=== PATIENT | male | born 1975 | race Caucasian/White ===

== ENCOUNTER → 2018-02-13 16:37 | Outpatient (CLI) | payer SELFPAY ==
[2018-02-13 18:52] LABS: BASOPHILS 0.2 % (0-2); HEMATOCRIT 31.9 % (42.0-54.0); LYMPHOCYTES 25.1 % (15-50); MCH 28.7 pg (26.0-34.0); MCHC 31.3 g/dL (31.0-37.0); MCV 91.4 fL (80.0-100.0); MEAN PLATELET VOLUME 11.2 fL (7.4-10.4); MONOCYTES 9.6 % (2-11); NEUTROPHILS 57.1 % (40-80); PLATELET COUNT 268 10x3/uL (130-400); RBC 3.49 10x6/uL (4.20-6.10)
[2018-02-13 20:39] LABS: ALBUMIN 2.9 g/dL (3.4-5.0); BILIRUBIN - DIRECT 0.07 mg/dL (0.00-0.30); BILIRUBIN - INDIRECT 0.17 mg/dL (0.00-1.00); BILIRUBIN - TOTAL 0.24 mg/dL (0.2-1.3); CREATININE - SERUM 0.8 mg/dL (0.6-1.3); PROTEIN - SERUM 8.1 g/dL (6.4-8.2)
[2018-02-13 20:41] LABS: VANCOMYCIN - TROUGH 64.7 ug/mL (10.0-20.0)
== END | disposition home or self-care (01) ==
LOC: D.LABREF 16:37
PROVIDERS: Internal Medicine
DX: M72.6 Necrotizing fasciitis (principal)

== ENCOUNTER → 2018-02-16 21:14 | Outpatient (CLI) | payer SELFPAY | END | disposition home or self-care (01) | LOC: D.LABREF 21:14 | DX: M72.6 Necrotizing fasciitis (principal) ==

== ENCOUNTER → 2018-02-20 17:00 | Outpatient (CLI) | payer SELFPAY | END | disposition home or self-care (01) | LOC: D.LABREF 17:00 | DX: M72.6 Necrotizing fasciitis (principal) ==

== ENCOUNTER → 2018-02-27 17:21 | Outpatient (CLI) | payer SELFPAY ==
[2018-02-27 17:56] LABS: BASOPHILS 0.3 % (0-2); EOSINOPHILS 6.9 % (0-7); HEMATOCRIT 34.7 % (42.0-54.0); HEMOGLOBIN 11.3 g/dL (13.5-17.5); IMMATURE GRANULOCYTES 0.3 % (0-5); LYMPHOCYTES 19.4 % (15-50); MCH 29.1 pg (26.0-34.0); MCHC 32.6 g/dL (31.0-37.0); MCV 89.4 fL (80.0-100.0); MEAN PLATELET VOLUME 11.5 fL (7.4-10.4); NEUTROPHILS 62.1 % (40-80); PLATELET COUNT 282 10x3/uL (130-400); RBC 3.88 10x6/uL (4.20-6.10); WBC 6.5 10x3/uL (4.8-10.8)
[2018-02-27 18:16] LABS: BILIRUBIN - DIRECT 0.06 mg/dL (0.00-0.30); BILIRUBIN - INDIRECT 0.18 mg/dL (0.00-1.00); BILIRUBIN - TOTAL 0.24 mg/dL (0.2-1.3); CREATININE - SERUM 0.7 mg/dL (0.6-1.3); PROTEIN - SERUM 7.8 g/dL (6.4-8.2); VANCOMYCIN - TROUGH 18.3 ug/mL (10.0-20.0)
[2018-02-27 18:59] LABS: ERYTHROCYTE SEDIMENTATION RATE 20 mm/hr (0-15)
== END | disposition home or self-care (01) ==
LOC: D.LABREF 17:21
PROVIDERS: Internal Medicine
DX: M72.6 Necrotizing fasciitis (principal)

== ENCOUNTER → 2018-03-06 17:49 | Outpatient (CLI) | payer SELFPAY ==
[2018-03-06 18:30] LABS: CREATININE - SERUM 0.9 mg/dL (0.6-1.3); VANCOMYCIN - TROUGH 6.3 ug/mL (10.0-20.0)
== END | disposition home or self-care (01) ==
LOC: D.LABREF 17:49
PROVIDERS: Internal Medicine
DX: M72.6 Necrotizing fasciitis (principal)